=== PATIENT | female | born 1995 | race Caucasian/White ===

== ENCOUNTER 2016-11-06 20:05 | Emergency (ER) | payer BC ==
[2016-11-06 20:14] VITALS: BP 139/85
--- NOTE | 2016-11-06 20:28 | UC ---
Cardiac HPI - HPI Summary HPI Summary: 21 year old female presents with complains of band like chest pain and shortness of breath. She is on control pills and I am very concerned about PE so I will send her to the ER. - History of Current Complaint Chief Complaint: UCRespiratory Stated Complaint: CHEST PAIN,SOB Time Seen by Provider: 11/06/16 20:27 - Allergy/Home Medications Allergies/Adverse Reactions: Allergies Allergy/AdvReac Type Severity Reaction Status Date / Time No Known Allergies Allergy Verified 01/19/15 18:11 PMH/Surg Hx/FS Hx/Imm Hx Previously Healthy: Yes - Surgical History Surgical History: Yes Surgery Procedure, Year, and Place: Left ACL SURGERY - Family History Known Family History: Positive: Unknown - Social History Alcohol Use: Occasionally Substance Use Type: None Smoking Status (MU): Never Smoked Tobacco Review of Systems Constitutional: Negative Skin: Negative Eyes: Negative ENT: Negative Respiratory: Shortness Of Breath Cardiovascular: Chest Pain Gastrointestinal: Negative Genitourinary: Negative Motor: Negative Neurovascular: Negative Musculoskeletal: Negative Neurological: Negative Psychological: Negative All Other Systems Reviewed And Are Negative: Yes Physical Exam Triage Information Reviewed: Yes Vital Signs: Initial Vital Signs Temp 37.2 C 11/06/16 20:06 Pulse 76 11/06/16 20:06 Resp 18 11/06/16 20:06 BP 139/85 11/06/16 20:06 Pulse Ox 100 11/06/16 20:06 Eye Exam: Normal ENT Exam: Normal Dental Exam: Normal Neck exam: Normal Neck: Positive: 1 Cardiovascular Exam: Normal Abdominal Exam: Normal Musculoskeletal Exam: Normal Neurological Exam: Normal Psychological Exam: Normal Skin Exam: Normal - Clinical Impression Provider Diagnoses: chest pain. shortness of breath Discharge - Discharge Plan Condition: Stable Disposition: HOME Referrals: Katarzyna Ledesma NP [Primary Care Provider] -
== END 2016-11-06 20:33 | disposition home or self-care (01) ==
LOC: UCEAST 20:05
DX: R07.9 Chest pain, unspecified (principal); R06.02 Shortness of breath; Z79.3 Long term (current) use of hormonal contraceptives
CPT/HCPCS: 99212; G0463

== ENCOUNTER 2016-11-06 20:49 | Emergency (ER) | payer BC ==
[2016-11-06 22:21] LABS: Hematocrit 41 % (35-47); Hemoglobin 13.7 g/dl (12.0-16.0); Mean Corpuscular HGB Conc 33 g/dl (31-36); Mean Corpuscular Hemoglobin 29 pg (27-31); Mean Corpuscular Volume 88 fL (80-97); Mean Platelet Volume 8 um3 (7.4-10.4); Red Cell Distribution Width 13 % (10.5-15); White Blood Count 8.8 10^3/ul (3.5-10.8)
[2016-11-06 22:37] LABS: ALT 14 U/L (7-52); AST 15 U/L (13-39); Albumin 4.4 g/dL (3.2-5.2); Alkaline Phosphatase 39 U/L (34-104); Anion Gap 6 mmol/L (2-11); BUN/Creatinine Ratio 15.7 (8-20); Blood Urea Nitrogen 13 mg/dL (6-24); CO2 Carbon Dioxide 25 mmol/L (22-32); Calcium 9.1 mg/dL (8.6-10.3); Chloride 104 mmol/L (101-111); EGFR African American 109.6 (>60); EGFR Non-African American 85.2 (>60); Globulin 2.9 g/dL (2-4); Glucose 87 mg/dL (70-100); Potassium 3.5 mmol/L (3.5-5.0); Sodium 135 mmol/L (133-145); Total Protein 7.3 g/dL (6.4-8.9)
--- NOTE | 2016-11-06 23:37 | ED ---
Fady Presley Alfonso, scribed for Rowdy Cedeño on 11/06/16 at 2207 . HPI Chest Pain - HPI Summary HPI Summary: This patient is a 21 year old F presenting from [facility] to [facility] accompanied by mother with a chief complaint of upper and right sided CP since 1300 today. The CC is described as aching, but sharp with inspiration. Pt rates the pain 4/10 in severity. Symptoms aggravated by deep breath and alleviated by nothing. Pt reports productive cough. Pt denies N/V, and SOB. She denies tobacco use. She is taking a BCP. She was in [place] last month. - History of Current Complaint Chief Complaint: EDChestWallPain Time Seen by Provider: 11/06/16 21:40 Hx Obtained From: Patient Onset/Duration: Started Hours Ago - 1300 today, Still Present Timing: Constant Initial Severity: Moderate Current Severity: Moderate Pain Intensity: 4 Pain Scale Used: 0-10 Numeric Chest Pain Location: Discrete at: - Upper and right sided Character: Dull/Aching, Sharp/Stabbing - inspiration Aggravating Factor(s): Deep Breaths Alleviating Factor(s): Nothing Associated Signs and Symptoms: Positive: Other: - Pt reports productive cough. Pt denies N/V, and SOB. - Allergy/Home Medications Allergies/Adverse Reactions: Allergies Allergy/AdvReac Type Severity Reaction Status Date / Time No Known Allergies Allergy Verified 01/19/15 18:11 PMH/Surg Hx/FS Hx/Imm Hx Endocrine/Hematology History: Denies: Hx Diabetes, Hx Thyroid Disease Cardiovascular History: Denies: Hx Hypertension Respiratory History: Denies: Hx Asthma, Hx Chronic Obstructive Pulmonary Disease (COPD) GI History: Denies: Hx Ulcer - Surgical History Surgery Procedure, Year, and Place: Left ACL SURGERY - Immunization History Date of Tetanus Vaccine: utd Date of Influenza Vaccine: utd Infectious Disease History: No Infectious Disease History: Denies: Hx Clostridium Difficile, Hx Hepatitis, Hx Human Immunodeficiency Virus (HIV), Hx of Known/Suspected MRSA, Hx Shingles, Hx Tuberculosis, Traveled Outside the in Last 30 Days - returned from [place] september 24 - Family History Known Family History: Positive: Diabetes, Other - A-Fib, cancer - Social History Alcohol Use: Rare Substance Use Type: Reports: None Smoking Status (MU): Never Smoked Tobacco Review of Systems Positive: Chest Pain - Upper and right sided Positive: Cough - Productive. Negative: Shortness Of Breath Negative: Vomiting, Nausea All Other Systems Reviewed And Are Negative: Yes Physical Exam Triage Information Reviewed: Yes Vital Signs On Initial Exam: Initial Vitals Temp Pulse Resp BP Pulse Ox 98.3 F 72 18 151/92 100 11/06/16 20:54 11/06/16 20:54 11/06/16 20:54 11/06/16 20:54 11/06/16 20:54 Vital Signs Reviewed: Yes Appearance: Positive: Well-Appearing, No Pain Distress Skin: Positive: Warm, Skin Color Reflects Adequate Perfusion, Dry Head/Face: Positive: Normal Head/Face Inspection Eyes: Positive: EOMI, SUSAN ENT: Positive: Normal ENT inspection Neck: Positive: Supple, Nontender Respiratory/Lung Sounds: Positive: Clear to Auscultation, Breath Sounds Present Cardiovascular: Positive: RRR, Pulses are Symmetrical in both Upper and Lower Extremities Abdomen Description: Positive: Nontender, Soft Bowel Sounds: Positive: Present Musculoskeletal: Positive: Strength/ROM Intact, Other - Mild right sided chest tenderness Neurological: Positive: Normal, Sensory/Motor Intact, Alert, Oriented to Person Place, Time - [place] Coma Scale Coma Scale Total: 15 Diagnostics - Vital Signs Vital Signs Temp Pulse Resp BP Pulse Ox 11/06/16 20:58 98.3 F 81 18 151/92 100 11/06/16 20:54 98.3 F 72 18 151/92 100 - Laboratory Lab Results: Lab Results 11/06/16 11/06/16 11/06/16 Range/Units 22:10 22:10 22:10 WBC 8.8 (3.5-10.8) 10^3/ul RBC 4.70 (4.0-5.4) 10^6/ul Hgb 13.7 (12.0-16.0) g/dl Hct 41 (35-47) % MCV 88 (80-97) fL MCH 29 (27-31) pg MCHC 33 (31-36) g/dl RDW 13 (10.5-15) % Plt Count 298 (150-450) 10^3/ul MPV 8 (7.4-10.4) um3 Neut % (Auto) 51.2 (38-83) % Lymph % (Auto) 40.2 (25-47) % [place] % (Auto) 6.2 (1-9) % Eos % (Auto) 1.4 (0-6) % Baso % (Auto) 1.0 (0-2) % Absolute Neuts (auto) 4.5 (1.5-7.7) 10^3/ul Absolute Lymphs (auto) 3.5 (1.0-4.8) 10^3/ul Absolute Monos (auto) 0.5 (0-0.8) 10^3/ul Absolute Eos (auto) 0.1 (0-0.6) 10^3/ul Absolute Basos (auto) 0.1 (0-0.2) 10^3/ul Absolute Nucleated RBC 0 10^3/ul Nucleated RBC % 0 INR (Anticoag Therapy) 0.82 L (0.89-1.11) APTT 33.2 (26.0-36.3) seconds D-Dimer, Quantitative < 200 (Less Than 230) ng/mL Sodium 135 (133-145) mmol/L Potassium 3.5 (3.5-5.0) mmol/L Chloride 104 (101-111) mmol/L Carbon Dioxide 25 (22-32) mmol/L Anion Gap 6 (2-11) mmol/L BUN 13 (6-24) mg/dL Creatinine 0.83 (0.51-0.95) mg/dL Est GFR ( Amer) 109.6 (>60) Est GFR (Non-Af Amer) 85.2 (>60) BUN/Creatinine Ratio 15.7 (8-20) Glucose 87 (70-100) mg/dL Calcium 9.1 (8.6-10.3) mg/dL Total Bilirubin 0.40 (0.2-1.0) mg/dL AST 15 (13-39) U/L ALT 14 (7-52) U/L Alkaline Phosphatase 39 (34-104) U/L Troponin I 0.00 (<0.04) ng/mL Total Protein 7.3 (6.4-8.9) g/dL Albumin 4.4 (3.2-5.2) g/dL Globulin 2.9 (2-4) g/dL Albumin/Globulin Ratio 1.5 (1-3) Result Diagrams: 11/06/16 22:10 11/06/16 22:10 Lab Statement: Any lab studies that have been ordered have been reviewed, and results considered in the medical decision making process. - Radiology CXR Radiology Interpretation Completed By: ED Physician - Negative - EKG 2100 Cardiac Rate: NL - BPM 74 EKG Rhythm: Sinus Rhythm Chest Pain Course/Dx - Course Assessment/Plan: 21 year old F presents to the ED with a CC of upper and right sided CP since 1300 today. The CC is described as aching, but sharp with inspiration. Pt reports productive cough. Pt denies N/V, and SOB. She denies tobacco use. She is taking a BCP. She was in [place] last month. CXR reveals negative exam. An EKG reveals NSR. The diagnosis is musculoskeletal chest pain. PE is unlikely. Patient will be discharged with follow up from PCP. Pt is agreeable with this plan. - Diagnoses Provider Diagnoses: Musculoskeletal chest pain, unlikely PE Discharge - Discharge Plan Condition: Stable Disposition: HOME Prescriptions: Ibuprofen TAB* [Motrin TAB* 600 MG] 600 mg PO Q8H PRN #15 tab PRN Reason: Pain Patient Education Materials: Chest Wall Pain (ED) Referrals: Katarzyna Ledesma, CERTIFIED HISTOLOGIC TECHNICIAN [Primary Care Provider] - 3 Days The documentation as recorded by the Fady castlelanos Alfonso accurately reflects the service I personally performed and the decisions made by , Rowdy Cedeño.
[2016-11-06 23:54] VITALS: BP 134/74
--- NOTE | 2016-11-07 11:56 | RAD ---
INDICATION: Chest pain COMPARISON: None TECHNIQUE: PA and lateral views of the chest were obtained. FINDINGS: The heart and mediastinum are normal in size and contour. The lungs are grossly clear. There is no evidence of large pleural effusion. Visualized bones are normal for the patient's age. There is no radiographic evidence of free air beneath the diaphragm IMPRESSION: No radiographic evidence of acute cardiopulmonary disease.
== END 2016-11-06 23:55 | disposition home or self-care (01) ==
LOC: ED 20:49
DX: R07.89 Other chest pain (principal)
CPT/HCPCS: 36415; 71020; 80053; 84484; 84702; 85025; 85379; 85610; 85730; 93005; 99282

== ENCOUNTER → 2019-04-13 09:45 | Day surgery (SDC) | payer BC ==
[~2019-04-13 09:45] MED LIST: Buffered Lidocaine 1% SYRIN* 1 ML/SYRINGE INTRADERM ONE; Bupivacaine 0.25% SDV PF* 10 ML VIAL INJ ONE; Dexamethasone IV* 4 MG/ML 1 ML (4 MG) IV SLOW PU ONE; Dexamethasone IV* 4 MG/ML 1 ML (4 MG) ONE; DiMENhydriNATE IV* 50 MG/ML VIAL IV PUSH PRN; Famotidine IV* 10 MG/ML 2 ML (20 mg) IV ONE; Famotidine IV* 10 MG/ML 2 ML (20 mg) ONE; HYDROcodone/ACETAMIN 5-325 MG* 1 TAB PO PRN; KETAMINE HCL* 50 MG/ML 10 ML VIAL ONE; Ketorolac INJ* 30 MG/ML 1 ML VIAL ONE; Lactated Ringers 1000 ML Bag* 1,000 ML IV SCH; Lidocaine 2% PF * 5 ML VIAL ONE; Midazolam* 1 MG/ML 5 ML VIAL (5 MG) ONE; Naloxone* 0.4 MG/ML 1 ML VIAL IV PRN; Ondansetron INJ* 2 MG/ML VIAL ONE; Phenylephrine 40 MCG/ML SYRINGE ONE; Propofol* 10 MG/ML 20 ML BTL ONE; Rocuronium* 10 MG/ML VIAL ONE; ceFAZolin 2 GM in NS PREMIX(*) 2 GM/100 ML BAG IVPB ONE; fentaNYL* 50 MCG/ML 2 ML VIAL (100 MCG VIAL) IV PRN; fentaNYL* 50 MCG/ML 2 ML VIAL (100 MCG VIAL) ONE; oxyCODONE/Acetamin 5/325 MG* TAB PO PRN
--- NOTE | 2019-04-13 15:05 | BRIEFOPN ---
Brief Operative/Procedure Note - Operation Details Pre-Op Diagnosis: Symptomatic Cholelithiasis Post-Op Diagnosis: Same Procedures: Laparoscopic Cholecystectomy Surgeon(s)/Proceduralists: Dr. Vida Tolentino. Assist: NAVA Gaffney Anesthesia: GET. IVF: 1600ml crystalloid Estimated Blood Loss: <50ml Findings: As above Specimen(s)/Culture(s) Description: Gallbladder Complications: None
[2019-04-13 16:02] VITALS: BP 141/91
--- NOTE | 2019-04-15 13:28 | OP ---
Operative Report - Blank - Operative Report Date of Operation: 04/13/19 Note: PRE-OPERATIVE DX: Symptomatic cholelithiasis POST-OPERATIVE DX: Symptomatic cholelithiasis PROCEDURE: Laparoscopic cholecystectomy SURGEON: Vida Tolentino MD BARBERING INSTRUCTOR: Fred VICK ANESTHESIA: General EBL: Minimal FINDINGS: Mildly inflamed gallbladder wall INDICATION: Kavitha Caal is a 23 year-old otherwise healthy woman who has been experiencing epigastric and right upper quadrant pain for the past 6 months. The pain would occur after heavy or fatty meals. She would also experience mid back pain. Ultrasound showed cholelithiasis. I discussed cholecystectomy with the patient and the possibility that removing the gallbladder may not resolve her symptoms. We also discussed risks including but not limited to bleeding, infection, bile duct injury, bowel injury, or persistent abdominal pain. The patient wished to proceed with surgery. DESCRIPTION: The patient was placed on the OR table in the supine position. SCDs were placed. The patient was warmed. Cefazolin 2g was given. General anesthesia was administered. The abdomen was prepped and draped in the usual sterile fashion. A time out was called confirming the patient's name, date of , and procedure. A supraumbilical curvilinear incision was made with a scalpel. The incision was taken down to the fascia with electrocautery and blunt dissection. The fascia was elevated and incised transversely with a scalpel. The peritoneum was elevated and opened with Metzenbaum scissors. A 12 mm trocar was placed into the abdomen. The camera was inserted through the trocar. A 5 mm trocar was placed in the epigastrium under direct visualization. Another 5 mm trocar was placed in the lateral right upper quadrant, and a third 5 mm trocar was placed at the mid-clavicular line in the right upper quadrant, both under direct visualization. The gallbladder was elevated cephalad. The peritoneum and omentum was taken down off the gallbladder wall using electrocautery and blunt dissection. The cystic duct was identified. There was a lymph node on the body of the gallbladder, which was bluntly dissected away from the gallbladder. The cystic artery was identified coursing behind the lymph node along the gallbladder wall. The artery was dissected away from the gallbladder wall then clipped. The artery was divided sharply between the clips. The peritoneum on the cystic duct was taken down to skeletonize the duct. The duct could seen as the only structure coming from the fundus of the gallbladder with the liver seen behind. The cystic duct was clipped and divided sharply between the clips. The gallbladder was then taken off of the liver bed using electrocautery. There was a small hole made near the dome of the gallbladder with spillage of bile. The gallbladder was placed in a specimen bag and removed from the abdomen. The field was suctioned and irrigated. The clips were examined and remained in good position. The 5 mm trocars were removed under direct visualization, and no bleeding was seen from the trocar sites. The 12 mm trocar was removed. The fascia was closed with a [id number] 0 Vicryl suture. The skin was closed with running 4-0 monocryl suture. The remaining incisions were closed with 4-0 monocryl. Marcaine 0.25% was injected into each of the incisions. The incisions were covered with Steri Strips. Needle and sponge counts were correct. The patient was extubated and brought to recovery in stable condition.
== END | disposition home or self-care (01) ==
LOC: OR 09:45
PROVIDERS: ATTEND Surgery Surgical Critical Care
DX: K80.10 Calculus of gallbladder with chronic cholecystitis without obstruction (principal)
CPT/HCPCS: 81025; 88304; J0690; J1100; J1885; J2250; J2405; J2704; J3010; J3490